=== PATIENT | male | born 1955 | race Caucasian/White ===

== ENCOUNTER 2023-02-12 16:20 | Inpatient (IN) | payer MEDICARE ==
[~2023-02-12] VITALS: Ht 182.9 cm; Wt 109.6 kg
[2023-02-12] MEDS ORDERED: ALBUTEROL/IPRATROPIUM 3 ML NEB NEB ONE ×3 (16:45→19:00)
[2023-02-12] MEDS ORDERED: DOXYCYCLINE HYCLATE TABLET 100 MG TAB PO ONE (17:30)
[2023-02-12] MEDS ORDERED: CEFTRIAXONE 1 GM VIAL IM ONE (17:30)
[2023-02-12] MEDS ORDERED: Doxycycline IV 100 MG Vial IV ONE (17:34)
[2023-02-12] MEDS ORDERED: ALBUTEROL/IPRATROPIUM 3 ML NEB ONE ×2 (17:34→19:01)
[2023-02-12] MEDS ORDERED: SODIUM CHLORIDE 0.9% 100 ML ONE (17:34)
[2023-02-12] MEDS ORDERED: CEFTRIAXONE 1 GM VIAL ONE (17:35)
[2023-02-12] MEDS ORDERED: PREDNISONE 20 MG TAB ONE (17:38)
[2023-02-12] MEDS: Doxycycline IV 100 MG in SODIUM CHLORIDE 0.9% 100 ML IV SCH (17:41)
[2023-02-12] MEDS ORDERED: PREDNISONE 20 MG TAB PO ONE (17:45)
[2023-02-12] MEDS ORDERED: METFORMIN HCL1000 M1 (18:24)
[2023-02-12] MEDS ORDERED: PROVENTIL HFA6.7 GM INH (18:24)
[2023-02-12] MEDS ORDERED: NOVOLIN N100 UNIT/1 SQ (18:24)
[2023-02-12] MEDS ORDERED: LISINOPRIL10 MG PO (18:24)
[2023-02-12] MEDS ORDERED: SERTRALINE HCL100 MG PO (18:24)
[2023-02-12] MEDS ORDERED: ADVAIR 250-501 EACH INH (18:24)
[2023-02-12 20:50] VITALS: PULSE 91; RESP 19; O2SAT 94
[2023-02-12 21:00] VITALS: BP 181/74; PULSE 73; RESP 18; TEMP 98.1; O2SAT 95
[2023-02-12 21:18] VITALS: BP 181/74; PULSE 73; RESP 18; TEMP 98.1; O2SAT 95
[2023-02-12 21:29] VITALS: BP 181/74; PULSE 73; RESP 18; TEMP 98.1; O2SAT 95
[2023-02-12] MEDS ORDERED: ACETAMINOPHEN 325 MG TAB PO PRN (21:30)
[2023-02-12] MEDS ORDERED: ONDANSETRON HCL INJ 2MG/ML 2ML 2 MG/ML VIAL IV PRN (21:30)
[2023-02-12] MEDS ORDERED: ALBUTEROL SULFATE HFA 8GM INHALATION AEROSOL INH PRN (21:30)
[2023-02-12] MEDS ORDERED: DEXTROSE 50% SYRINGE 50 ML IV PRN (21:30)
[2023-02-13] VITALS (8 sets, daily range): BP systolic 157–179; BP diastolic 66–97; PULSE 61–93; RESP 18–21; TEMP 97.7–98.7; O2SAT 94–99
[2023-02-13] MEDS: CLONIDINE HCL 0.1 MG TAB PO PRN ×3 (00:31→20:58)
[2023-02-13 07:52] LABS: BASOPHILS % 0.1 % (0.0-1.0); HEMATOCRIT 37.5 % (38.2-49.6); HEMOGLOBIN 11.5 g/dL (14.0-18.0); LYMPHOCYTES # (AUTO) 0.9 (1.0-3.2); LYMPHOCYTES % 9.6 % (18.0-39.1); MEAN CORPUSCULAR HGB CONC 30.7 g/dL (31-35); MEAN CORPUSCULAR VOLUME 94.5 fL (81-99); MONOCYTES # (AUTO) 0.5 (0.2-0.8); MONOCYTES % 4.9 % (4.4-11.3); PLATELET COUNT 285 x10e3/uL (140-360); RED BLOOD COUNT 3.97 x10e6/uL (4.3-5.7); RED CELL DISTRIBUTION WIDTH 13.4 % (11.7-14.4)
[2023-02-13 08:09] LABS: ANION GAP 10.6 mmol/L (8-16); CALCIUM 8.4 mg/dL (8.4-10.2); CREATININE, SERUM 1.9 mg/dL (0.72-1.25); POTASSIUM 5.6 mmol/L (3.5-5.1)
[2023-02-13] MEDS: SALMETEROL/FLUTICASONE 250/50 INH SCH (09:00)
[2023-02-13] MEDS: INSULIN REGULAR, HUMAN 100 UNIT/1 ML SQ SCH ×4 (09:46→20:58)
[2023-02-13] MEDS ORDERED: SOD POLYSTYRENE SULFONATE SUSP 15 GM/60 ML BTL PO ONE (11:30)
[2023-02-13] MEDS: PREDNISONE 20 MG TAB PO SCH (12:06)
[2023-02-13] MEDS: SODIUM CHLORIDE 0.9% 1000ML 1,000 ML IV SCH ×2 (12:06→20:45)
[2023-02-13] MEDS ORDERED: ENOXAPARIN SOD INJ 40 MG/0.4 ML SYR SC SCH (17:00)
[2023-02-13 17:30] LABS: ANION GAP 12.2 mmol/L (8-16); CALCIUM 8.1 mg/dL (8.4-10.2); CREATININE, SERUM 1.87 mg/dL (0.72-1.25)
[2023-02-13 17:32] LABS: POTASSIUM 5.2 mmol/L (3.5-5.1)
[2023-02-13] MEDS: Doxycycline IV 100 MG in SODIUM CHLORIDE 0.9% 100 ML IV SCH (18:12)
[2023-02-13] MEDS ORDERED: SERTRALINE HCL 100 MG TAB PO SCH (21:00)
[2023-02-14] MEDS: INSULIN REGULAR, HUMAN 100 UNIT/1 ML SQ SCH ×2 (07:30→12:53)
[2023-02-14 08:25] VITALS: BP 179/97; PULSE 63; RESP 21; TEMP 98.7; O2SAT 98
[2023-02-14 08:47] VITALS: BP 182/70; PULSE 60; RESP 18; TEMP 98.1; O2SAT 100
[2023-02-14] MEDS: SALMETEROL/FLUTICASONE 250/50 INH SCH (09:00)
[2023-02-14] MEDS: SODIUM CHLORIDE 0.9% 1000ML 1,000 ML IV SCH (09:57)
[2023-02-14] MEDS: PREDNISONE 20 MG TAB PO SCH (09:57)
[2023-02-14 10:30] VITALS: PULSE 89; RESP 20; O2SAT 97
[2023-02-14] MEDS ORDERED: NORVASC5 MG PO (11:29)
[2023-02-14] MEDS ORDERED: PREDNISONE20 MG PO (11:31)
[2023-02-14] MEDS ORDERED: AZITHROMYCIN250 MG PO (11:31)
[2023-02-14 11:57] LABS: ANION GAP 9.6 mmol/L (8-16); CALCIUM 7.8 mg/dL (8.4-10.2); CREATININE, SERUM 1.54 mg/dL (0.72-1.25); POTASSIUM 4.6 mmol/L (3.5-5.1)
[2023-02-14 12:21] VITALS: BP 191/81; PULSE 61; RESP 20; TEMP 98.4; O2SAT 97
[2023-02-14] MEDS ORDERED: AMLODIPINE BESYLATE 5 MG TAB PO SCH (12:30)
[2023-02-14] MEDS ORDERED: ONDANSETRON HCL 4 MG ORAL DISINTEGRATING TAB PO PRN (13:30)
[2023-02-14] MEDS ORDERED: DOXYCYCLINE HYCLATE TABLET 100 MG TAB PO SCH (14:30)
== END 2023-02-14 14:09 | disposition home or self-care (01) | DRG 192 ==
LOC: FSED 16:25 → ERHOLD 19:04 → EDBD 19:04 → MED/SURG 20:51 → MED/SURG2 02-13 17:06
PROVIDERS: ADMIT Internal Medicine; ATTEND Internal Medicine
DX: J44.1 Chronic obstructive pulmonary disease with (acute) exacerbation (principal); E87.5 Hyperkalemia; E11.22 Type 2 diabetes mellitus with diabetic chronic kidney disease; N18.9 Chronic kidney disease, unspecified; H53.40 Unspecified visual field defects; Z85.47 Personal history of malignant neoplasm of testis; Z87.891 Personal history of nicotine dependence; Z86.16 Personal history of COVID-19; Z79.4 Long term (current) use of insulin
CPT/HCPCS: 36415; 71046; 80048; 82550; 82553; 82948; 84484; 85025; 93005; 94664; 94799; 99284; J0696; J1650; J7030; J7050; J7512

== ENCOUNTER 2023-02-24 02:02 | Emergency (ER) | payer MEDICARE ==
[~2023-02-24] VITALS: Ht 182.9 cm; Wt 109.3 kg
[~2023-02-24 02:02] MED LIST: ADVAIR 250-501 EACH INH; AZITHROMYCIN250 MG PO; LISINOPRIL10 MG PO; METFORMIN HCL1000 M1; NORVASC5 MG PO; NOVOLIN N100 UNIT/1 SQ; PREDNISONE20 MG PO; PROVENTIL HFA6.7 GM INH; SERTRALINE HCL100 MG PO
[2023-02-24] MEDS ORDERED: DEXTROSE 50% SYRINGE 50 ML IV ONE ×2 (02:11→02:14)
[2023-02-24] MEDS ORDERED: ASPIRIN 81 MG CHEW TAB PO ONE (02:15)
[2023-02-24 02:25] VITALS: PULSE 76; RESP 20; O2SAT 95
[2023-02-24 02:48] LABS: BASOPHILS # (AUTO) 0.1 (0.0-0.1); BASOPHILS % 0.4 % (0.0-1.0); LYMPHOCYTES # (AUTO) 0.4 (1.0-3.2); LYMPHOCYTES % 1.6 % (18.0-39.1); MEAN CORPUSCULAR HEMOGLOBIN 28.9 pg (28-32); MEAN CORPUSCULAR HGB CONC 29.3 g/dL (31-35); MEAN CORPUSCULAR VOLUME 98.8 fL (81-99); MONOCYTES # (AUTO) 3.2 (0.2-0.8); MONOCYTES % 11.4 % (4.4-11.3); NEUTROPHILS # (AUTO) 24.3 (2.1-6.9); NEUTROPHILS % 85.9 % (38.7-80.0); PLATELET COUNT 267 x10e3/uL (140-360); RED BLOOD COUNT 4.15 x10e6/uL (4.3-5.7); RED CELL DISTRIBUTION WIDTH 14.1 % (11.7-14.4)
[2023-02-24 03:10] LABS: ALBUMIN 1.8 g/dL (3.5-5.0); ALBUMIN/GLOBULIN RATIO 0.5 (0.8-2.0); ANION GAP 12.2 mmol/L (8-16); CALCIUM 8.4 mg/dL (8.4-10.2); CREATININE, SERUM 1.39 mg/dL (0.72-1.25)
[2023-02-24] MEDS ORDERED: DEXTROSE 10% 1,000 ML IV ONE ×2 (03:12→03:15)
[2023-02-24] MEDS ORDERED: CEFTRIAXONE 1 GM VIAL ONE (03:13)
[2023-02-24] MEDS ORDERED: DEXTROSE 50% SYRINGE 50 ML IV STA (03:17)
[2023-02-24 03:22] LABS: POTASSIUM 6.2 mmol/L (3.5-5.1)
[2023-02-24 03:41] LABS: CLARITY,URINE CLOUDY (CLEAR); COLOR,URINE YELLOW (YELLOW); PHENCYCLIDINE SCREEN,URINE NEGATIVE (NEGATIVE)
[2023-02-24 03:42] LABS: ABG PH 7.12 (7.35-7.45)
[2023-02-24 03:42] LABS: AMPHETAMINES SCREEN,URINE NEGATIVE (NEGATIVE); BENZODIAZEPINES SCREEN,URINE NEGATIVE (NEGATIVE)
[2023-02-24 03:44] LABS: ABG HCO3 31 mmol/L (22-26); ABG PCO2 94 mmHg (35-45); ABG PO2 68 mmHg (80-105); ABG TCO2 33
[2023-02-24 03:46] LABS: KETONES,URINE NEGATIVE (NEGATIVE); LEUKOCYTE ESTERASE ,URINE NEGATIVE (NEGATIVE); NITRITE,URINE NEGATIVE (NEGATIVE); PROTEIN,URINE DIPSTICK >=300 (NEGATIVE); URINE UROBILINOGEN 0.2 mg/dL (0.2 - 1)
[2023-02-24 03:47] LABS: ABG PH 7.24 (7.35-7.45)
[2023-02-24 03:47] LABS: AMORPHOUS SEDIMENT,URINE MANY (FEW); BACTERIA,URINE MANY /HPF; EPITHELIAL CELLS,URINE FEW /LPF; MUCUS,URINE MANY (RARE); TRANSITIONAL EPI CELLS,URINE FEW
[2023-02-24 03:49] LABS: ABG HCO3 29 mmol/L (22-26); ABG PCO2 67 mmHg (35-45); ABG PO2 72 mmHg (80-105); ABG TCO2 31
[2023-02-24 04:04] LABS: ANION GAP 13.1 mmol/L (8-16); CALCIUM 8.8 mg/dL (8.4-10.2); CREATININE, SERUM 1.47 mg/dL (0.72-1.25)
[2023-02-24 04:06] LABS: POTASSIUM 6.1 mmol/L (3.5-5.1)
[2023-02-24] MEDS ORDERED: NALOXONE HCL INJ 0.4 MG/ML AMP ONE ×2 (04:11→04:15)
[2023-02-24 04:15] VITALS: PULSE 74; RESP 20; O2SAT 99
[2023-02-24] MEDS ORDERED: NALOXONE HCL INJ 0.4 MG/ML AMP IV ONE ×2 (04:15→04:30)
[2023-02-24 06:30] VITALS: BP 147/65; PULSE 75; RESP 19; TEMP 99.8
[2023-02-24 06:47] VITALS: O2SAT 100
== END 2023-02-24 06:52 | disposition other institution (70) ==
LOC: ER 02:05
DX: R41.82 Altered mental status, unspecified (principal); U07.1 COVID-19; J18.9 Pneumonia, unspecified organism; E16.2 Hypoglycemia, unspecified; J44.9 Chronic obstructive pulmonary disease, unspecified; D72.829 Elevated white blood cell count, unspecified; E87.5 Hyperkalemia; I10 Essential (primary) hypertension; F32.A Depression, unspecified; Z85.47 Personal history of malignant neoplasm of testis
CPT/HCPCS: 36415; 36600; 70450; 71045; 72125; 80048; 80053; 80307; 80320; 81001; 82140; 82550; 82805; 82948; 83605; 84484; 85025; 87040; 93005; 94002; 94003; 94799; 99285; J0696; J2310; J7799; U0002